=== PATIENT | male | born 2000 | race Caucasian/White ===

== ENCOUNTER 2022-04-10 06:42 | Outpatient (REF) | payer OTHER, SELFPAY ==
[2022-04-10 11:47] LABS: Alanine Aminotransferase 20 U/L (0-40); Albumin Level 4.2 g/dL (3.5-5.0); Alkaline Phosphatase 67 U/L (39-117); Anion Gap 12 (12-20); Aspartate Amino Transferase 20 U/L (5-37); Bilirubin Total 0.3 mg/dL (0.0-1.0); Blood Urea Nitrogen 14 mg/dL (9-16); Carbon Dioxide 27 mmol/L (22-29); Chloride 107 mmol/L (96-108); Cholesterol 154 mg/dL; Estimated Glomerular Filt Rate > 60; Glucose Fasting 114 mg/dL (60-99); HDL Cholesterol 42 mg/dL; LDL Cholesterol Calculated 105 mg/dl; Potassium 4.2 mmol/L (3.3-5.1); Sodium 142 mmol/L (135-145); Total Protein 6.7 g/dL (6.5-8.0); Triglycerides 39 mg/dL
[2022-04-10 11:55] LABS: HBS Num1 5.15 mIU/mL (0-7.99); HBc Num1 0.08 S/CO (0.00-0.79); HBsAGNum1 0.29 S/CO (0.00-0.99); HIV AB/AG Nonreactive (Nonreactive); HIV Num 1 0.05 S/CO (0.00-0.99); Hepatitis B Core Antibody Nonreactive (Nonreactive); Hepatitis B Surface Antigen Negative (Negative); ~HepC Num1 0.11 S/CO (0.00-0.79); ~Hepatitis B Surface Antibody NONREACTIVE (Nonreactive); ~Hepatitis C Antibody Nonreactive (Nonreactive)
[2022-04-11 08:15] LABS: Syphilis Screen Nonreactive (Nonreactive)
== END 2022-04-10 06:43 | disposition home or self-care (01) ==
LOC: HO.HMGCLDS 06:42
PROVIDERS: PCP Family Medicine; Visit Provider Family Medicine
DX: Z00.00 Encounter for general adult medical examination without abnormal findings (principal); Z11.4 Encounter for screening for human immunodeficiency virus [HIV]; Z11.3 Encounter for screening for infections with a predominantly sexual mode of transmission
CPT/HCPCS: 36415; 80053; 80061; 84443; 86704; 86706; 86780; 86803; 87340; 87389

== ENCOUNTER 2025-07-19 10:50 | Outpatient (AMB) | payer OTHER, SELFPAY ==
--- OUTSIDE RECORDS SUMMARY | 2025-07-19 10:53 | XMS_ITS | Encounter Summary ---
Author Organization [facility] Address [address] [place] [phone] Phone Care Team Providers Care Welt Butter Hand Name Role Phone Unavailable Primary Care Provider Unavailabl e Encounter Details Date Type Department Care Team (Late st Contact Info) Description 08/05/2010 Documentation [facility] [place] [facility] [address] [place] [address] Family Medicine, Physician [address] [place] [address] Social History Tobacco Use Types Packs/Day Years Used Date Smoking Tobacco: Never Assessed Sex and Gender Information Value Date Recorded Sex Assigned at Not on file Legal Sex Male 5:02 PM EDT Gender Identity Not on file Sexual Orientation Not on file documented as of this encounter Plan of Treatment Not on file documented as of this encounter Visit Diagnoses Not on filedocumented in this encounter
--- OUTSIDE RECORDS SUMMARY | 2025-07-19 10:53 | XMS_ITS | Encounter Summary ---
Author Organization [facility] Address [address] [place] [phone] Phone Care Team Providers Care Cable Tower Operator Name Role Phone Unavailable Primary Care Provider Unavailabl e Encounter Details Date Type Department Care Team (Late st Contact Info) Description 09/13/2014 Documentation [facility] [place] [facility] [address] [place] [address] Family Medicine, Physician [facility] [place] [address] Social History Tobacco Use Types [...]
--- OUTSIDE RECORDS SUMMARY | 2025-07-19 10:53 | XMS_ITS | Encounter Summary ---
Author Organization [facility] Address [address] [place] [phone] Phone Care Team Providers Care School Athletic Director Name Role Phone Unavailable Primary Care Provider Unavailabl e Encounter Details Date Type Department Care Team (Late st Contact Info) Description 03/12/2017 Conversion Encounter [facility] - [address] [address] Social History Tobacco Use Types Packs/Day Years Used Date Smoking Tobacco: Never Comments:Never smoker Sex and Gender Information Value Date Recorded Sex Assigned at Not on file Legal Sex Male 5:02 PM EDT Gender Identity Not on file Sexual Orientation Not on file documented as of this encounter Plan of Treatment Not on file documented as of this encounter Visit Diagnoses Not on filedocumented in this encounter
--- OUTSIDE RECORDS SUMMARY | 2025-07-19 10:53 | XMS_ITS | Clinical Summary ---
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 Mild intermittent asthma without complication 06/20/20 09 10/02/2017 Immunizations Immunization Administration Dates Next Due DTaP 5 03/14/2004, 1,1999,,1999 HPV, Quadrivalent 08/25/2014,10/03/2013,08/25/19 14 Hep A, ped/adol 08/28/2015,08/25/2014 Hep B, ped/adol 1999,1999,1999 Hib (PRP-T) 06/15/2000, 0,1999,07/24 IPV 03/14/2004, 0,1999,07/24 Influenza Split 08/04/2012,07/30/2011,06/19/2010 Influenza, injectable, MDCK, preservative free, quadrivalent 09/17/2016 Influenza, injectable, quadrivalent 08/28/2015,0 08/25/2014 Influenza, injectable, quadr ivalent, preservative free 10/02/2017,08/25/2013 Influenza, injectable, trivalent 06/20/2009,1107/2007,06/10/2007 MMR 03/14/2004,06/15/2000 Meningococcal Conj (Menactra) MCV4P 09/17/2016,0 07/31/2010 Pneumococcal Conjugate 10/02/2000,05/01/2000 Tdap 07/31/2010 Varicella 06/16/2008,06/15/2000 Family History Medical History Relation Name Comments Cancer (Childhood Onset) Maternal Grandmother Diabetes Paternal Grandmother Diabetes Sister Relation Name Status Comments Maternal Grandmother Materna l grandmother: Obesity, Cancer, ovarian Mother Alive Mother: Alive a nd well Other Family history of Diabetes mellitus, Family history of Hypertension, Family history of Asthma Paternal Grandmother Sister Alive Sister: Alive a nd well Social History Tobacco Use Types Packs/Day Years Used Date Smoking Tobacco: Never Comments:Never smoker Alcohol Use Standard Drinks/Week Comments No 0 (1 standard drink = 0.6 oz pur e alcohol) Sex and Gender Information Value Date Recorded Sex Assigned at Not on file Legal Sex Male 5:02 PM EDT Gender Identity Not on file Sexual Orientation Not on file Last Filed Vital Signs Vital Sign Reading Time Taken Comments Blood Pressure 112/64 10/02/2017 1:16 PM EST Pulse 82 10/02/2017 1:16 PM EST Temperature 36.4 C (97.5 F) 09/02/2016 12:00 AM EST Respiratory Rate - - Oxygen Saturation - - Inhaled Oxygen Concentration - - Weight 83.8 kg (184 lb 12.8 oz) 10/02/2017 1:16 PM EST Height 149.9 cm (4' 11 ) 10/02/2017 1:16 PM EST Body Mass Index 37.33 10/02/2017 1:16 PM EST Plan of Treatment Health Maintenance Due Date Last Done Comments DTaP,Tdap,and Td Vaccines (7 - Td or Tdap) 07/31/2020 07/31/2010, 03/14/2004, 10/02/2000, Additional history exists Influenza Vaccines (#1) 2025 10/03/19 18, 09/17/2016, 08/28/2015, Additional history exists COVID-19 Vaccine ( season) 2025 Hepatitis B Vaccines Completed 1999, 1999, 1999 HIB Vaccines Completed 06/15/2000, 09/1999, 1999, Additional history exists Pneumococcal Vaccine Aged Out 10/02/2000, 05/01/20 00 No longer eligible based on patient's age to complete this topic IPV Vaccines Completed 03/14/2004, 05/28, 1999, Additional history exists MMR Vaccines Completed 03/14/2004, 06/15/2000 Varicella Vaccines Completed 06/16/2008, 06/15/2000 HPV Vaccines Completed 08/25/2014, 09/24, 08/25/2013 Hepatitis A Vaccines Completed 08/28/2015, 08/25/19 15 Meningococcal Vaccine Completed 09/17/2016, 011 Men B Vaccine Aged Out No longer elig ible based on patient's age to complete this topic Insurance . [id number] [id number] [facility] NON PCC
[2025-07-19 11:01] VITALS: BP 108/60; PULSE 107; TEMP 37.5; O2SAT 99; BMI 47.6
--- NOTE | 2025-07-19 11:01 | MHC.OFFWIV ---
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 Patient Tobacco Use Status: Current someday Tobacco user Allergies No Known Allergies Allergy (Verified 07/19/25 11:07) HPI GENERAL II FARMWORKER Face swelling, fever, stiff neck HPI Details This is a 25-year-old male patient who presents to the walk-in clinic with a 3 day history of progressively worsening right-sided facial rash/swelling, including his eyelid and ear. Now, rash is spreading across his forehead. He also reports neck stiffness, right greater than left. Reports T-max at home 102, reduces with Tylenol. He denies any known recent exposure to sick contacts. No recent illnesses. Denies any injury to face or use of any new products, soaps, shampoos etc. No new meds or recent new foods. NKA. Has tried Ibuprofen and Benadryl as well without relief. PENDING SALE TO [facility] Medical History Asthma Surgical History No pertinent past surgical history Family History Mother Hypertension Cancer Father No problems noted. Maternal Grandmother Cancer Paternal Grandmother Cancer Social History Housing: Condominium Patient Tobacco Use Status: Current someday Tobacco user Tobacco use type: Cigar e-Cigarette/Vaping Use: Never Used Second Hand Smoke Exposure: No service: No Current occupational status: unemployed and student Current occupational exposures/hazards: No Cognitive needs: No Hearing needs: No Vision needs: Yes Review of Systems Const All systems reviewed & are unremarkable except as noted in HPI and below Physical Exam Vital Signs: Last Vital Signs Temp 99.5 F 07/19/25 11:01 Pulse 107 H 07/19/25 11:01 BP 108/60 07/19/25 11:01 Pulse Ox 99 07/19/25 11:01 Oxygen Delivery Method Room Air 07/19/25 11:01 BMI result Body Mass Index 47.6 Const General: cooperative and no acute distress Limitations: no limitations HEENT Other: swelling of right upper lid and right pinna. Erythematous rash across right maxillary area and forehead Ears: hearing grossly normal bilaterally General nose exam: Normal external nose present Face images:  1. rash 2. rash Mouth: Normal oral and palatal mucosa present Throat: Yes posterior oropharynx normal Resp Effort & Inspection: normal respiratory effort Auscultation: clear to auscultation bilaterally Cardio Rate: regular rate Rhythm: regular rhythm Back/Spine/Pelvis Other: painful cervical forward flexion Extrem General: Yes no clubbing, cyanosis or edema Psych Appearance: grossly normal Mental Status: mental status grossly normal Speech and movement: Normal speech and movement present Assessment & Plan Assessment & Plan (1) Facial rash: Code(s): R21 - Rash and other nonspecific skin eruption Plan: Given facial/orbital rash, recent fever, and neck pain, I feel patient should have evaluation at the ED for meningitis r/o. I discussed this with patient and his mother who both agree to go to the ED. Patient's mother will bring him. Expect call made to Manjula at [facility]. (2) Neck pain: Code(s): M54.2 - Cervicalgia Plan: As above Coding Level of Care Code Est Pt Level 4 (82876) Diagnoses Facial rash R21 Neck pain M54.2
== END 2025-07-19 11:49 | disposition home or self-care (01) ==
PROVIDERS: Visit Provider Nurse Practitioner Family
DX: R21 Rash and other nonspecific skin eruption (principal); M54.2 Cervicalgia

== ENCOUNTER 2025-07-19 11:53 | Emergency (ER) | payer OTHER, SELFPAY ==
--- NOTE | ~2025-07-19 | CT_ITS ---
EXAMINATION: CT SOFT TISSUE NECK WITH CONTRAST CLINICAL INFORMATION: Swelling and pain. Concern for neck abscess. COMPARISON: None available. TECHNIQUE: Following the intravenous administration of 60 mL of Omnipaque 350 intravenous contrast, helical imaging was performed in the axial plane with generation of coronal and sagittal reformatted images. This CT examination was performed using dose optimization techniques as appropriate, variously including the following: *Automated exposure control *Adjustment of mA and/or kV according to patient size (this includes techniques or standardized protocols for targeted exams where dose is matched to indication/reason for exam; i.e. extremities or head) *Use of iterative reconstruction technique DLP: 885 FINDINGS: Visualized brain parenchyma is a unremarkable. The lateral ventricles are symmetrical in size and configuration without enlargement. Normal enhancement is seen in the major intracranial arteries. Bilateral paranasal sinuses and mastoid air cells are well-aerated. Visualized bilateral parotid, submandibular glands and thyroid lobes are symmetrical and normal. The adenoids is slightly prominent with punctate calcifications likely adenoid hypertrophy. There is minimal nasopharyngeal airway narrowing. Bilateral lingual or palatine tonsils are symmetrical and normal. There is no peritonsillar abscess, mass seen. There are small shotty neck lymph nodes none of which are significant. Normal enhancement seen in both carotid arteries and widely patent jugular veins. The lung apices are clear. Superior mediastinum is unremarkable. Visualized maxillofacial, mandibular, nasal bones and the cervical spine is unremarkable. CT/CT soft tissue neck w IV con IMPRESSION: Unremarkable CT soft tissue neck examination mild adenoid hypertrophy with minimal Hypertrophy or peritonsillar abscess seen. No abnormal neck lymphadenopathy. Electronically signed by: Wali Reyna MD 07/19/2025 04:11 PM [facility]
[2025-07-19 12:29] VITALS: BP 123/69; PULSE 108; RESP 18; TEMP 37.7; O2SAT 95; BMI 47.4
--- NOTE | 2025-07-19 12:29 | ED_ITS ---
HPI - General Adult General Chief complaint: General Medical Stated complaint: meningitis? Time Seen by Provider: 07/19/25 13:52 Source: patient and family (patient's mother) Mode of arrival: ambulatory Limitations: no limitations History of Present Illness ED Provider: Sita Infante PA-C HPI narrative: Patient is a 25 year old male with no reported medical history presenting to the emergency department today with right sided facial swelling / redness. Patient states that over the last 2 days he has had right sided facial redness / swelling / warmth. Patient states that he has a bit of a headache and neck pain. Patient states that he is able to move his neck freely. Patient denies any other complaints at this time. Related Data Previous Rx's ?Medication ?Instructions ?Recorded cephalexin 500 mg capsule 500 mg PO Q6H 7 days #28 cap s 07/19/25 doxycycline hyclate 100 mg tablet 100 mg PO BID 7 days #14 tabs 07/19/25 Allergies Allergy/AdvReac Type Severity Reaction Status Date / Time No Known Allergies Allergy Verified 07/19/25 12:33 Review of Systems 2 Constitutional: Constitutional: Reports as per HPI Eyes: Eyes: Reports as per HPI ENT: Reports as per HPI Cardiovascular: Cardiovascular: Reports as per HPI Respiratory: Respiratory: Reports as per HPI Gastrointestinal: Gastrointestinal: Reports as per HPI Genitourinary: Genitourinary: Reports as per HPI Musculoskeletal: Musculoskeletal: Reports as per HPI Integumentary/Breasts: Skin/Breast: Reports as per HPI Neurologic: Reports as per HPI Psychiatric: Psychiatric: Reports as per HPI Endocrine: Endocrine: Reports as per HPI Hematologic/Lymphatic: Hematologic/Lymphatic: Reports as per HPI Allergic/Immunologic: Allergic/Immunologic: Reports as per HPI [facility] Past Medical History Attestation statement: The following information was validated with the patient. Source: old records reviewed and nursing notes reviewed Medical History Asthma Surgical History No pertinent past surgical history Family History Family History Mother Hypertension Cancer Father No problems noted. Maternal Grandmother Cancer Paternal Grandmother Cancer Social History Social History Housing: Condominium Patient Tobacco Use Status: Current someday Tobacco user Tobacco use type: Cigar e-Cigarette/Vaping Use: Never Used Second Hand Smoke Exposure: No Advance Directives: No Advance Directives Information Provided: Yes service: No Current occupational status: unemployed and student Current occupational exposures/hazards: No Cognitive needs: No Hearing needs: No Vision needs: Yes Physical Exam ED Vital Signs: Vital Signs - 24 hr 07/19/25 12:29 07/19/25 16:47 Temperature 99.8 F 98.4 F Pulse Rate 108 H 88 Respiratory Rate 18 16 Blood Pressure 123/69 112/84 Pulse Oximetry 95 98 Oxygen Delivery Method Room Air Room Air BMI result Body Mass Index 47.4 Const General: cooperative, no acute distress, alert and awake Nutritional Appearance: well nourished Orientation/consciousness: patient oriented x3 HENMT Other: Head: Yes normal to inspection and Yes atraumatic Ears: hearing grossly normal bilaterally and external ears normal General nose exam: Normal external nose present, no nasal discharge noted and no epistaxis Face and sinus: No abrasion and No laceration Mouth: Normal oral and palatal mucosa present, no drooling and no muffled voice Eyes General: appearance normal, both eyes and all related structures Periorbital: periorbital findings normal Eyelids: Yes eyelids normal Conjunctivae: conjunctivae normal Pupils: Equal, round and reactive pupils present EOM: EOMs intact bilaterally Neck Neck: Yes normal visual inspection and Yes full ROM Resp Effort & Inspection: normal respiratory effort and able to speak in complete sentences Neuro General: patient oriented x3, moves all extremities and CN's II-XI intact bilaterally Cranial nerves: Yes Equal, round and reactive pupils present Cognition (Neuro): normal cognition Extrem General: Yes normal to inspection, Yes full ROM and Yes capillary refill normal Psych Appearance: grossly normal Mental Status: mental status grossly normal Affect: normal affect Attitude: cooperative Thought process: Normal thought process present Thought content: Normal thought content present Insight: Good insight present (Psych) Course Course Course Narrative: This is a rapid medical exam performed by Alejandro Masterson NP: Additional HPI, ROS, PE not included below will be deferred to primary provider. Patient is a 25y/o M presenting with complaint of worsening R sided facial swelling, to periorbital area, around ear. Denies dental pain but complains of pain to jaw. Fever of 102 last night. Sent by to rule out meningitis. No nuchal rigidity noted in triage. Plan: labs Medications Administered Discontinued Medications Generic Name Dose Route Start Last Admin Trade Name Ye PRN Reason Stop Dose Admin Vancomycin HCl 2,000 mg in 500 mls @ 250 mls/hr 07/19/25 14:10 07/19/25 15:49 Vancomycin/Ns IV 07/19/25 16:09 250 mls/hr ONCE ONE Administration Piperacillin Sod/Tazobactam 50 mls @ 100 mls/hr 07/19/25 14:10 07/19/25 15:44 Sod 3.375 gm/ Sodium Chloride IV 07/19/25 14:39 Infused ONCE ONE Infusion Acetaminophen 1,000 mg in 100 mls @ 400 mls/hr 07/19/25 14:14 07/19/25 15:08 Ofirmev IV 07/19/25 14:28 Infused ONCE ONE Infusion Sodium Chloride 1,000 mls @ 999 mls/hr 07/19/25 15:45 07/19/25 16:49 Ns IV 07/19/25 16:45 Infused .Q1H1M SARINA Infusion Iohexol 100 ml 07/19/25 15:37 07/19/25 15:40 Iohexol 350 Mg/Ml 100 Ml Infus..Btl IV 07/19/25 15:38 60 ml ONCE ONE Administration Ketorolac Tromethamine 15 mg 07/19/25 14:14 07/19/25 14:52 Ketorolac Tromethamine 15 Mg/Ml Vial IVPUSH 07/19/25 14:15 15 mg ONCE ONE Administration Medical Decision Making Medical Decision Making [facility] Narrative: Patient is a 25 year old male with no reported medical history presenting to the emergency department today with right sided facial swelling / redness. Patient's physical exam was as noted in the physical exam portion of this note. Patient's blood work showed an ESR of 47 and CRP 23.97. Patient's CT soft tissue neck was unremarkable - no abscess. Patient's clinical presentation is most consistent with right sided facial cellulitis. Patient received IV fluids, Tylenol, Toradol, Vancomycin, and Zosyn. I explained my physical exam findings as well as all test results to the patient. I answered all questions asked by the patient. I stressed the importance of the patient taking his medication as directed (either prescribed or as the over the counter packaging recommends). I stressed the importance of the patient following up with his primary care provider. I stressed the importance of the patient returning to the emergency department immediately if his symptoms were to worsen or if he were to develop any dizziness, shortness of breath, difficulty breathing, chest pain, blurry vision, loss of vision, nausea, vomiting, abdominal pain, fever, chills, back pain, or any other complaints. Patient verbalized agreement and understanding with this treatment plan and discharge. Differential Diagnosis Differential Diagnoses: The differential diagnosis associated with the presentation includes Right sided facial swelling Right sided facial cellulitis Right sided facial abscess Admission/Observation Consideration of admission/observation: Escalation of care including admission/observation considered Patient would have been admitted to the hospital had his work up had any findings where hospital admission was appropriate and his clinical presentation warranted hospital admission. Lab Data [facility] Lab Attestation statement: I reviewed the patient's lab results. My interpretation of these results are in the [facility] Rationale portion of this note. 07/19/25 13:18 07/19/25 13:18 Labs: Lab Results 07/19/25 07/19/25 Range/Units 13:18 14:45 WBC 8.0 (4.8-10.8) X10*3/uL RBC 5.18 (4.60-5.80) X10*6/uL Hgb 14.3 (14.0-18.0) g/dl Hct 44.0 (42.0-52.0) % MCV 84.9 (80.0-98.0) fL MCH 27.6 (27.0-33.0) pg MCHC 32.5 (31.0-36.0) g/dl RDW 12.5 (11.0-16.0) % Plt Count 177 (160-400) X10*3/uL MPV 9.9 (9.4-12.4) fL Immature Gran % (Auto) 0.5 H (0.0-0.4) % Neut % (Auto) 75.1 H (45-73) % Lymph % (Auto) 12.3 L (20-40) % Hitchcock % (Auto) 12.0 H (2-11) % Eos % (Auto) 0.0 (0-4) % Baso % (Auto) 0.1 (0-2) % Lymph # (Auto) 1.0 L (1.2-4.9) X10*3/uL Hitchcock # (Auto) 1.0 (0.1-1.2) X10*3/uL Eos # (Auto) 0.0 (0.0-0.4) X10*3/uL Baso # (Auto) 0.0 (0.0-0.2) X10*3/uL Abs Immat Gran (auto) 0.04 H (0.00-0.03) X10*3/uL Absolute Neuts (auto) 6.0 (2.0-8.3) x10*3/uL Absolute Nucleated RBC 0.000 (0.0-0.012) X10*3/uL Nucleated RBC % (auto) 0.0 (0.0-0.2) /100WBC ESR 47 H (1-15) MM/HR Sodium 138 (135-145) mmol/L Potassium 4.9 (3.3-5.1) mmol/L Chloride 104 (96-108) mmol/L Carbon Dioxide 26 (22-29) mmol/L Anion Gap 13 (12-20) BUN 9 (9-16) mg/dL Creatinine 0.90 (0.5-1.4) mg/dL Estim Creat Clear Calc 130.1 Estimated GFR > 60 Random Glucose 104 (60-115) mg/dL Lactic Acid 0.9 (0.5-2.0) mmol/L Calcium 9.6 D (8.4-10.2) mg/dL Total Bilirubin 0.5 (0.0-1.0) mg/dL AST 22 (5-37) U/L ALT 22 (0-40) U/L Alkaline Phosphatase 64 (39-117) U/L C-Reactive Protein 23.97 H (< or = 0.50) mg/dL Total Protein 7.3 (6.5-8.0) g/dL Albumin 4.4 (3.5-5.0) g/dL Influenza Type A (PCR) NEGATIVE (Negative) Influenza Type B (PCR) NEGATIVE (Negative) RSV RNA Qual (PCR) NEGATIVE (Negative) SARS-CoV-2 RNA (RT-PCR) NEGATIVE (Negative) S. pyogenes GrpA FLOR Negative (Negative) Independent Interpretation I performed an independent interpretation of an: CT Scan Interpretation: My interpretation is in agreement with the radiologist's impression of this imaging study as written below. EXAMINATION: CT SOFT TISSUE NECK WITH CONTRAST CLINICAL INFORMATION: Swelling and pain. Concern for neck abscess. COMPARISON: None available. TECHNIQUE: Following the intravenous administration of 60 mL of Omnipaque 350 intravenous contrast, helical imaging was performed in the axial plane with generation of coronal and sagittal reformatted images. This CT examination was performed using dose optimization techniques as appropriate, variously including the following: *Automated exposure control *Adjustment of mA and/or kV according to patient size (this includes techniques or standardized protocols for targeted exams where dose is matched to indication/reason for exam; i.e. extremities or head) *Use of iterative reconstruction technique DLP: 885 FINDINGS: Visualized brain parenchyma is a unremarkable. The lateral ventricles are symmetrical in size and configuration without enlargement. Normal enhancement is seen in the major intracranial arteries. Bilateral paranasal sinuses and mastoid air cells are well-aerated. Visualized bilateral parotid, submandibular glands and thyroid lobes are symmetrical and normal. The adenoids is slightly prominent with punctate calcifications likely adenoid hypertrophy. There is minimal nasopharyngeal airway narrowing. Bilateral lingual or palatine tonsils are symmetrical and normal. There is no peritonsillar abscess, mass seen. There are small shotty neck lymph nodes none of which are significant. Normal enhancement seen in both carotid arteries and widely patent jugular veins. The lung apices are clear. Superior mediastinum is unremarkable. Visualized maxillofacial, mandibular, nasal bones and the cervical spine is unremarkable. CT/CT soft tissue neck w IV con IMPRESSION: Unremarkable CT soft tissue neck examination mild adenoid hypertrophy with minimal Hypertrophy or peritonsillar abscess seen. No abnormal neck lymphadenopathy. Electronically signed by: Wali Reyna MD 07/19/2025 04:11 PM [facility] Dictated By: Wali Reyna MD Signed By: Electronically signed by Wali Reyna MD 07/19/25 1615 Radiology Impression Discussion of test interpretation with radiology: I have reviewed the radiologist's reading. Independent Historian Clinical information obtained from an independent historian. History obtained from or confirmed by: Parent (Patient's mother provided additional history and confirmed the history provided by the patient. ) Prescription Management I considered prescription management with: Antibiotic (patient prescribed an antibiotic for right sided facial cellulitis) Critical Care Time Critical Care Time Critical Care Time: Yes Total Critical Care Time: 46 Attestation: I spent 46 minutes of Critical Care Time with this patient. This does not include time spent on separately reported billable procedures. Discharge Plan Discharge Clinical Impression: Cellulitis of face Patient Disposition: Home, Self-Care Instructions: Cellulitis (ED) Additional Instructions: Your work up today showed evidence of a right sided facial infection but no evidence of abscess. Take your antibiotic as prescribed. IF you are prescribed home medications and/or you are taking over the counter medications at home - it is very important you continue to do so as prescribed / directed unless told otherwise by a healthcare provider. Follow up with your primary care provider. Do your best to stay well hydrated and rest. Return to the emergency department immediately if your symptoms worsen or if you develop any numbness, tingling, dizziness, shortness of breath, difficulty breathing, chest pain, blurry vision, loss of vision, nausea, vomiting, abdominal pain, fever, chills, back pain, or any other complaints. Please see the information below about our Patient Portal. If you are not yet enrolled in the [facility] Patient Portal, you will receive an enrollment email invitation following your visit to any [facility] setting. You may also self-enroll in the Patient Portal by visiting our website: [email or web address] The following information is required to access the Patient Portal: - Your [facility] Medical Record Number - Your personal home email address (must match what is in your electronic medical record, Registration staff can assist with this) - Name - Date of Capabilities of the Patient Portal: - Message some providers - View upcoming appointments - Access your health summary, medical history, and visit history - View current conditions and allergies - View procedure and lab results - View your medications, including guidelines, side effects, and precautions - Complete pre-appointment questionnaires requested by your provider - Ready summary reports of your office visits and procedures To access the Patient Portal Mobile [employer], follow these directions: - Search [employer] in the Radha Store or Google Play Store - Download the Radha - Search for [facility] - Enter your login/password Prescriptions: New cephalexin 500 mg capsule 500 mg PO Q6H 7 Days Qty: 28 0RF doxycycline hyclate 100 mg tablet 100 mg PO BID 7 Days Qty: 14 0RF Referrals: Ezequiel Piper MD [Primary Care Provider, Internal Medicine] Stand Alone Forms: Work/School Release Print Language: Amharic
[2025-07-19 13:25] LABS: MANUAL DIFF FLAG NO
[2025-07-19 13:31] LABS: Hematocrit 44.0 % (42.0-52.0); Hemoglobin 14.3 g/dl (14.0-18.0); Imm Gran Abs Auto 0.04 X10*3/uL (0.00-0.03); Imm Gran Pct Auto 0.5 % (0.0-0.4); Lymphocytes Absolute Auto 1.0 X10*3/uL (1.2-4.9); Mean Corpuscular HGB Conc 32.5 g/dl (31.0-36.0); Mean Corpuscular Hemoglobin 27.6 pg (27.0-33.0); Mean Corpuscular Volume 84.9 fL (80.0-98.0); NRBC Abs Auto 0.000 X10*3/uL (0.0-0.012); NRBC Pct Auto 0.0 /100WBC (0.0-0.2); Platelet Count 177 X10*3/uL (160-400); Red Blood Count 5.18 X10*6/uL (4.60-5.80); White Blood Count 8.0 X10*3/uL (4.8-10.8)
[2025-07-19 13:38] LABS: Strep A Nucleic Acid Negative (Negative)
[2025-07-19 13:40] LABS: Alanine Aminotransferase 22 U/L (0-40); Albumin Level 4.4 g/dL (3.5-5.0); Alkaline Phosphatase 64 U/L (39-117); Anion Gap 13 (12-20); Aspartate Amino Transferase 22 U/L (5-37); Blood Urea Nitrogen 9 mg/dL (9-16); Calcium 9.6 mg/dL (8.4-10.2); Carbon Dioxide 26 mmol/L (22-29); Chloride 104 mmol/L (96-108); Creatinine Clr Calc Pharmacy 130.1; Estimated Glomerular Filt Rate > 60; Potassium 4.9 mmol/L (3.3-5.1); Sodium 138 mmol/L (135-145); Total Protein 7.3 g/dL (6.5-8.0)
[2025-07-19 14:02] LABS: Resp Syncy Virus RNA Qual PCR NEGATIVE (Negative); SARS COV2 PCR INHOUSE NEGATIVE (Negative)
[2025-07-19] MEDS: iohexoL 350 MG/ML 100 ML INFUS..BTL IV (15:40)
[2025-07-19] MEDS: vancomycin/NS 2,000 MG/500 ML PLAST..BAG 250 MG IV (15:49)
[2025-07-19 16:47] VITALS: BP 112/84; PULSE 88; RESP 16; TEMP 36.9; O2SAT 98
[2025-07-19 18:08] VITALS: BP 112/84; PULSE 88; RESP 16; TEMP 36.9; O2SAT 98
== END 2025-07-19 18:08 | disposition home or self-care (01) ==
PROVIDERS: Physician Assistant Medical; Registered Nurse Emergency; Emergency Provider Emergency Medicine; PCP Family Medicine
DX: L03.211 Cellulitis of face (principal); R68.84 Jaw pain; J45.909 Unspecified asthma, uncomplicated; F17.200 Nicotine dependence, unspecified, uncomplicated; Z03.818 Encounter for observation for suspected exposure to other biological agents ruled out
CPT/HCPCS: 36415; 70491; 80053; 83605; 85025; 85652; 86140; 87040; 87637; 87651; 96365; 96366; 96367; 96375; 99284; 99285; J0131; J1885; J2543; J3373; Q9967

== ENCOUNTER → 2025-07-19 14:10 | Outpatient (BNV) | payer OTHER, SELFPAY | PROVIDERS: Emergency Provider Emergency Medicine; PCP Family Medicine; Visit Provider Radiology Diagnostic Radiology | DX: M54.2 Cervicalgia (principal); R22.0 Localized swelling, mass and lump, head | CPT/HCPCS: 70491 ==